=== PATIENT | female | born 1960 | race Caucasian/White ===

== ENCOUNTER 2016-05-05 05:45 | Day surgery (SDC) | payer OTHER ==
[~2016-05-05] VITALS: Ht 162.6 cm; Wt 95.3 kg
[~2016-05-05 05:45] MED LIST: ADVIL200 MG PO; BEANO PO; DUEXIS 800-26.1 EACH PO; LOPRESSOR50 MG PO; PERCOCET 5/31 TABLET PO; TOPROL XL50 MG PO; TUMS500 MG PO; [UNRECOGNIZED DRUG - OTHER] PO
[2016-05-05 06:47] VITALS: BP 131/65
[2016-05-05 11:48] VITALS: BP 119/69
[2016-05-05 12:50] VITALS: BP 102/64
== END 2016-05-05 13:15 | disposition home or self-care (01) ==
LOC: SDC 05:45
DX: R10.13 Epigastric pain (principal); I88.9 Nonspecific lymphadenitis, unspecified; R01.1 Cardiac murmur, unspecified; K21.9 Gastro-esophageal reflux disease without esophagitis; Z87.891 Personal history of nicotine dependence
CPT/HCPCS: 88304; J0330; J0690; J1100; J1170; J2250; J2405; J2710; J3010